=== PATIENT | female | born 1960 | race Caucasian/White ===

== ENCOUNTER 2016-09-17 13:40 | Outpatient (CLI) | payer MEDICARE | END 2016-09-17 13:41 | disposition home or self-care (01) | DX: Z12.31 Encounter for screening mammogram for malignant neoplasm of breast (principal) ==

== ENCOUNTER 2017-03-04 18:26 | Emergency (ER) | payer MEDICARE ==
[2017-03-04] MEDS ORDERED: AMOX/CLAV 875 MG/125 MG TABLET PO STA (19:47)
[2017-03-04] MEDS ORDERED: TETANUS/DIPHTHERIA/PERTUSSIS 0.5 ML SYRINGE IM ONE ×2 (19:48→20:01)
--- NOTE | 2017-03-04 19:51 | ED Physician Documentation ---
PD HPI WOUND RECHECK - Stated complaint Stated Complaint: DOG SCRATCH/RED BUMP - Chief complaint Chief Complaint: Wound - Histroy obtained from History obtained from: Patient - History of Present Illness Location: Other (She was scratched to the left arm by her dog last night around 6 PM, this is in contrast to the nursing notes which that it was today. She developed increased pain and swelling overnight with redness to the area but no generalized fevers. 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 HEENT: Other - Present Medications Home Medications: Ambulatory Orders Medication Instructions Recorded Confirmed Albuterol Sulfate [Proventil Hfa 2 puffs PO Q4HR PRN 03/18/16 03/04/17 Inhaler] Fexofenadine HCl [Sheila Allergy] 1 tab PO DAILY PRN 03/18/16 03/04/17 Levothyroxine [Synthroid] 125 mg PO DAILY 03/18/16 03/04/17 Mometasone Furoate [Asmanex] 4 puffs PO BID 03/18/16 03/04/17 Omeprazole [PriLOSEC] 20 mg PO DAILY 03/18/16 03/04/17 Potassium Gluconate 99 mg PO DAILY 03/18/16 03/04/17 Pseudoephedrine [Sudafed] 1 tab PO DAILY PRN 03/18/16 03/04/17 Amox/Clav 875/125 [Augmentin] 1 each PO Q12H #14 tablet 03/04/17 - Allergies Allergies/Adverse Reactions: Allergies Allergy/AdvReac Type Severity Reaction Status Date / Time alcohol Allergy Anaphylaxis Verified 03/18/16 04:34 aspirin Allergy Anaphylaxis Verified 03/18/16 04:34 NSAIDS (Non-Steroidal Allergy Anaphylaxis Verified 03/18/16 04:34 Anti-Inflamma - Social History Does the pt smoke?: No Smoking Status: Never smoker Does the pt drink ETOH?: No Does the pt have substance abuse?: No - Immunizations Immunizations are current?: Yes PD ED PE NORMAL - Vitals Vital signs reviewed: Yes - General General: Alert and oriented X 3, No acute distress - Extremities Extremities: Other (There is a shallow wound over the dorsal left mid forearm with a little bit of purulent material in it and mild surrounding cellulitis but no abscess to drain. It was cultured by the nurse prior to my evaluation.) - Neuro Neuro: Alert and oriented X 3, Normal speech - Psych Psych: Normal mood, Normal affect Results - Vitals Vitals: Vital Signs - 24 hr 03/04/17 18:36 Temperature 36.4 C L Heart Rate 97 Respiratory 16 Rate Blood Pressure 125/86 H O2 Saturation 96 Oxygen O2 Source Room air Departure - Departure Disposition: Home, Self Care Clinical Impression: Dog bite of left forearm with infection Qualifiers: Encounter type: initial encounter Qualified Code(s): S51.852A - Open bite of left forearm, initial encounter; L08.9 - Local infection of the skin and subcutaneous tissue, unspecified; L08.9 - Local infection of the skin and subcutaneous tissue, unspecified; W54.0XXA - Bitten by dog, initial encounter; W54.0XXA - Bitten by dog, initial encounter Condition: Good Record reviewed to determine appropriate education?: Yes Instructions: ED Bite Dog Prescriptions: Amox/Clav 875/125 [Augmentin] 1 each PO Q12H #14 tablet Comments: Return if worse or if not improving over the next 48 hours, anytime if he develop a fever. Your blood pressure was elevated today on check into the emergency department. This does not mean that you have hypertension, it is a common phenomenon to come to the emergency department and have elevated blood pressure. I recommend that she see your primary care physician within the week to have it rechecked when you are feeling better.
[2017-03-04] MEDS ORDERED: AMOX/CLAV 875 MG/125 MG TABLET PO ONE (20:01)
[2017-03-04 20:20] VITALS: BP 135/88
== END 2017-03-04 20:18 | disposition home or self-care (01) ==
LOC: ED 18:26
DX: S50.812A Abrasion of left forearm, initial encounter (principal); L03.114 Cellulitis of left upper limb; W54.8XXA Other contact with dog, initial encounter; R03.0 Elevated blood-pressure reading, without diagnosis of hypertension; Z23 Encounter for immunization
CPT/HCPCS: 87070; 87205; 90471; 90715; 99283; A9270

== ENCOUNTER 2018-02-10 09:31 | Outpatient (CLI) | payer OTHER, MEDICARE | END 2018-02-10 09:32 | disposition home or self-care (01) | LOC: SC 09:31 | PROVIDERS: ATTEND Internal Medicine Pulmonary Disease | DX: G47.10 Hypersomnia, unspecified (principal); G47.8 Other sleep disorders; E66.9 Obesity, unspecified; Z68.33 Body mass index [BMI] 33.0-33.9, adult | CPT/HCPCS: 99203; 99212 ==

== ENCOUNTER 2018-03-22 19:37 | Outpatient (CLI) | payer OTHER, MEDICARE | END 2018-03-22 19:38 | disposition home or self-care (01) | LOC: SC 19:37 | PROVIDERS: ATTEND Internal Medicine Pulmonary Disease | DX: R09.02 Hypoxemia (principal); G47.61 Periodic limb movement disorder | CPT/HCPCS: 95810 ==

== ENCOUNTER 2019-02-02 11:12 | Outpatient (CLI) | payer OTHER, MEDICARE ==
--- NOTE | 2019-02-06 16:26 | Mammography Report ---
Reason: SCREENING MAMMO Procedure Date: 02/02/2019 Accession Number: [id number] / [id number] Procedure: [facility] - Screening Mammo w/[facility] CPT Code: FULL RESULT: EXAM: Screening Mammo w/[facility] DATE: 02/02/2019 11:51 AM CLINICAL HISTORY: Routine screening TECHNIQUE: (B) - Bilateral CC and MLO views were obtained. COMPARISON: 09/17/2016, 03/26/2014, 12/11/2010 and 10/12/2008 PARENCHYMAL PATTERN: (F) - The breasts demonstrate diffuse fatty replacement bilaterally. FINDINGS: No significant interval change. There are no suspicious masses, calcifications, or areas of distortion. A 5 mm ovoid nodule in the retroareolar right breast 6:00 position is stable since 2013. IMPRESSION: Benign findings. BI-RADS category 2. RECOMMENDATION: (ANNUAL) - Recommend routine annual screening mammography. BI-RADS CATEGORY: (2) - Benign Findings. STANDARD QUALIFYING STATEMENTS: 1. This examination was not reviewed with the aid of Computer-Aided Detection (CAD). 2. A negative or benign imaging report should not preclude biopsy if clinically suspicious findings are present. 3. Dense breasts may obscure an underlying neoplasm. 4. This examination was reviewed with the aid of 3D breast imaging (tomosynthesis).
== END 2019-02-02 11:13 | disposition home or self-care (01) ==
LOC: DI 11:12
PROVIDERS: ATTEND Internal Medicine
DX: Z12.31 Encounter for screening mammogram for malignant neoplasm of breast (principal)
CPT/HCPCS: 77063; 77067

== ENCOUNTER 2022-02-18 13:20 | Outpatient (CLI) | payer OTHER ==
--- NOTE | 2022-02-19 09:55 | Mammography Report ---
BILATERAL DIGITAL SCREENING MAMMOGRAM 3D/2D: 02/18/2022 CLINICAL: Routine screening. Comparison is made to exams dated: 02/02/2019 mammogram, 09/17/2016 mammogram - [facility], 03/26/2014 mammogram, and 12/11/2010 mammogram - [facility]. There are scattered areas of fibroglandular density in both breasts (category b / 25%-50% glandular t issue). No significant masses, calcifications, or other findings are seen in either breast. There has been no significant interval change. IMPRESSION: NEGATIVE There is no mammographic evidence of malignancy. A 1 year screening mammogram is recommended. Based on the Tyrer Cuzick model (a risk assessment model) the patients lifetime risk is 5.6% and her 10 year risk is 2.4%. According to the ACR, ACS, and NCCN guidelines, an annual breast MRI exam harriet g with mammogram is recommended if the patients lifetime risk is 20% or greater. This exam was interpreted at Station ID: [id number]. NOTE: For mammograms, a report in lay terms will be sent to the patient. Approximately 15% of breast malignancies will not be visualized mammographically. In the management of a palpable breast mass, a negative mammogram must not discourage biopsy of a clinically suspicious lesion. Electronically Signed By: Kj [email or web address]/jen:02/18/2022 21:41:59 ACR BI-RADS Category 1: Negative 3341F PARENCHYMAL PATTERN: (A) - The breast(s) demonstrate(s) scattered fibroglandular densities. BI-RADS CATEGORY: (1) - 1 RECOMMENDATION: (ANNUAL) - Recommend routine annual screening mammography. [id number] 1 year screening LATERALITY: (B)
== END 2022-02-18 13:21 | disposition home or self-care (01) ==
LOC: DI.N 13:20
PROVIDERS: ATTEND Internal Medicine
DX: Z12.31 Encounter for screening mammogram for malignant neoplasm of breast (principal)